=== PATIENT | female | born 1985 | race African-American/Black ===

== ENCOUNTER 2018-02-18 09:41 | Emergency (ER) | payer MEDICAID ==
[~2018-02-18] VITALS: Ht 170.2 cm; Wt 62.6 kg
[2018-02-18 09:57] VITALS: BP 119/83
--- NOTE | 2018-02-18 10:03 | NUR ---
ED Nurse Note:pt. came with fever blister on lower lip and requesting for voltrex prescription
[2018-02-18] MEDS ORDERED: VALACYCLOVIR500 MG ORAL ×2 (10:07→10:27)
[2018-02-18 11:02] VITALS: BP 119/83
--- NOTE | 2018-02-18 11:04 | NUR ---
PT is Dc per Md order. pt vital signs is stable. pt is alert and oriented times 4, pt is able to ambulate with steady gait. pt has left with all belongings, as well as DC notes and prescriptions. pt is able to teach back DC notes and prescriptions. pt vital signs, status, and condition was reported to ERMD prior to DC. pt is instructed to follow up with primary provider as soon as possible. pt is instructed to return to ER as soon as possible if any abnormalities.
--- NOTE | 2018-02-19 12:55 | Emergency Room Report ---
History of Present Illness General Chief Complaint: General Complaint Source: Patient Present Illness HPI Patient presents with reports of outbreak of herpes on her right side of her lip reports that she has had this before As the area was uncomfortable Patient reports that she is out of town and some of the clinics were not covering her insurance so she presents to the ER Denies any fevers or chills denies any neck pain denies any vomiting Allergies: Coded Allergies: No Known Allergies (Unverified , 02/18/18) Patient History Past Medical History: see triage record Pertinent Family History: none Last Menstrual Period: on period Reviewed Nursing Documentation: PMH: Agreed; PSxH: Agreed Nursing Documentation-PMH Past Medical History: No History, Except For Review of Systems All Other Systems: negative except mentioned in HPI Physical Exam Vital Signs Date Time Temp Pulse Resp B/P (MAP) Pulse Ox O2 Delivery O2 Flow Rate FiO2 02/18/18 09:57 98.4 64 16 119/83 98 Room Air Sp02 EP Interpretation: reviewed, normal General Appearance: well appearing, no apparent distress Head: normocephalic, atraumatic Eyes: bilateral eye PERRL, bilateral eye EOMI ENT: other - Small herpetic lesion right lower lip, does not appear secondarily infected fairly well localized erythematous base with a blister formation Neck: supple Respiratory: lungs clear Musculoskeletal: normal inspection Neurologic: alert, oriented x3, responsive Skin: other - As above Lymphatic: no adenopathy Medical Decision Making Diagnostic Impression: Primary Impression: oral herpes ER Course Patient's exam is fairly consistent with oral herpes Patient is prescribed medications appropriately she did report some concern regarding filling her prescription She was referred to the pharmacy across the street And the ER will be contacted if there is any concerns or problems with the prescription Last Vital Signs Date Time Temp Pulse Resp B/P (MAP) Pulse Ox O2 Delivery O2 Flow Rate FiO2 02/18/18 11:02 98.4 16 119/83 98 Room Air 02/18/18 10:07 64 Status: unchanged Disposition: HOME, SELF-CARE Condition: Stable Scripts Valacyclovir Hcl* (VALTREX*) 500 Mg Tablet 1000 MG ORAL TWICE A DAY for 3 Days, TAB Prov: Wong Singh DO 02/18/18 Referrals: NOT CHOSEN IPA/MD,REFERRING (PCP) Patient Instructions: Cold Sore, [id number] Additional Instructions: Patient is provided with the discharge instructions notified to follow up with primary doctor in the next 2-3 days otherwise return to the er with any worsening symptoms. Please note that this report is being documented using [employer] technology. This can lead to erroneous entry secondary to incorrect interpretation by the dictating instrument. Wong Singh DO Feb 19, 2018 12:55
== END 2018-02-18 11:04 | disposition home or self-care (01) ==
LOC: EMR 10:27
DX: B00.89 Other herpesviral infection (principal)
CPT/HCPCS: 99282